=== PATIENT | female | born 1970 | race American Indian/Alaskan Native ===

== ENCOUNTER 2017-10-01 10:13 | Emergency (ER) | payer BC ==
[2017-10-01 10:24] VITALS: BP 133/81
[2017-10-01] MEDS ORDERED: ULTRAM PO ONE (12:07)
--- NOTE | 2017-10-01 12:19 | Emergency Department Report ---
Chief Complaint: Extremity Injury, Lower Stated Complaint: RIGHT KNEE PAIN Time Seen by Provider: 10/01/17 12:06 - HPI History of Present Illness: The patient is a 47-year-old female presents for evaluation of right knee pain. The patient reports right knee pain for the past 2-3 weeks, achy in quality, moderate in severity, exacerbated with weightbearing or ambulation, improved with leg elevation. - Exam Vital Signs: Vital Signs 10/01/17 10:20 Temperature 98.5 F Pulse Rate 90 Respiratory 20 Rate Blood Pressure 133/81 O2 Sat by Pulse 99 Oximetry MSE screening note: Focused history and physical exam performed. Due to findings the following was ordered: ED Disposition for MSE Condition: Stable Referrals: YOHAN STREET MD [Primary Care Provider] - 3-5 Days
--- NOTE | 2017-10-01 12:35 | Emergency Department Report ---
ED Extremity Problem HPI - General Chief complaint: Extremity Injury, Lower Stated complaint: RIGHT KNEE PAIN Time Seen by Provider: 10/01/17 12:06 Source: patient Mode of arrival: Ambulatory Limitations: No Limitations - History of Present Illness Initial comments: The patient is a 47-year-old female presents for evaluation of right knee pain. The patient reports right knee pain for the past 2-3 weeks, achy in quality, moderate in severity, exacerbated with weightbearing or ambulation, improved with leg elevation. MD Complaint: joint swelling, joint paint Onset/Timin -: week(s) Location: right, knee History of Same: Yes Severity scale (0 -10): 5 - Related Data Previous Rx's Medication Instructions Recorded Last Taken Type traMADol [Ultram] 50 mg PO Q6HR PRN #12 tablet 10/01/17 Unknown Rx Allergies Allergy/AdvReac Type Severity Reaction Status Date / Time ibuprofen [From Motrin] Allergy Itching Verified 10/01/17 10:20 naproxen [From Naprosyn] Allergy Itching Verified 10/01/17 10:20 ED Review of Systems ROS: Stated complaint: RIGHT KNEE PAIN Other details as noted in HPI ED Past Medical Hx - Past Medical History Hx Hypertension: Yes - Surgical History Past Surgical History?: No - Social History Smoking Status: Never Smoker Substance Use Type: None - Medications Home Medications: Home Medications Medication Instructions Recorded Confirmed Last Taken Type traMADol [Ultram] 50 mg PO Q6HR PRN #12 tablet 10/01/17 Unknown Rx ED Physical Exam - General Limitations: No Limitations ED Course Vital Signs 10/01/17 10:20 Temperature 98.5 F Pulse Rate 90 Respiratory 20 Rate Blood Pressure 133/81 O2 Sat by Pulse 99 Oximetry Critical care attestation.: If time is entered above; I have spent that time in minutes in the direct care of this critically ill patient, excluding procedure time. ED Disposition Clinical Impression: Right knee pain Qualifiers: Chronicity: acute Qualified Code(s): M25.561 - Pain in right knee Strain of right knee Qualifiers: Encounter type: initial encounter Qualified Code(s): S86.911A - Strain of unspecified muscle(s) and tendon(s) at lower leg level, right leg, initial encounter Disposition: DC-01 TO HOME OR SELFCARE Is pt being admited?: No Does the pt Need Aspirin: No Condition: Stable Instructions: Arthralgia (ED), Knee Pain (ED), Knee Exercises (GEN), RICE Therapy (ED) Additional Instructions: Please rest, ice, compress and elevate affected area 72 hours Follow up orthopedic doctor in 3-5 days. Please do not use Ultram while driving, as this medication causes drowsiness If the knee pain worsens, redness or swelling develop, please return to the hospital Prescriptions: traMADol [Ultram] 50 mg PO Q6HR PRN #12 tablet PRN Reason: Pain Referrals: YOHAN STREET MD [Primary Care Provider] - 3-5 Days ALICIA MOREL MD [Staff Physician] - 3-5 Days Forms: Work/School Release Form(ED)
--- NOTE | 2017-10-01 13:58 | XRay Report ---
RIGHT KNEE, 3 views: History: Right knee pain. The bony architecture is intact without evidence of fracture or dislocation. No significant soft tissue abnormality is seen. IMPRESSION: Unremarkable right knee.
== END 2017-10-01 13:52 | disposition home or self-care (01) ==
LOC: ED 10:13
DX: S76.911A Strain of unspecified muscles, fascia and tendons at thigh level, right thigh, initial encounter (principal); I10 Essential (primary) hypertension; Z88.6 Allergy status to analgesic agent; Z88.8 Allergy status to other drugs, medicaments and biological substances; X58.XXXA Exposure to other specified factors, initial encounter; Y93.89 Activity, other specified; Y92.89 Other specified places as the place of occurrence of the external cause; Y99.8 Other external cause status
CPT/HCPCS: 99283